=== PATIENT | female | born 1980 | race Caucasian/White ===

== ENCOUNTER 2016-10-12 20:27 | Emergency (ER) | payer OTHER ==
[~2016-10-12] VITALS: Ht 172.7 cm; Wt 74.6 kg
[~2016-10-12 20:27] MED LIST: METR-1 PO
[2016-10-12 20:31] VITALS: BP 135/56; PULSE 84; RESP 16; TEMP 98.6; O2SAT 97
--- NOTE | 2016-10-12 20:57 | PD ---
HPI Chief Complaint: Complaint Time Seen by Provider: 20:56 Travel History International Travel<30 days: No Contact w/Intl Traveler<30days: No History of Present Illness HPI 36-year-old female presents the emergency department with question of urinary tract infection. Patient states some dysuria for the past 2 days. Patient states history of bacterial vaginosis in the past, and she is concerned about possible GC chlamydia she had intercourse with a new partner 2 days ago and the condom broke. She currently has some itching and vaginal discharge, but no fever, flank pain, nausea, or vomiting. She has no known drug allergies. PFSH Past Medical History Anxiety: Yes Diminished Hearing: No Immunizations Current: No : 3 Para: 3 Miscarriage: 0 : 0 Tubal Ligation: Yes Past Surgical History Other Surgery: Yes (LEFT BREAT BIOPSY) Social History Alcohol Use: Yes (on occasion) Tobacco Use: No Substance Use: Yes (THC on occasion) Allergies-Medications (Allergen,Severity, Reaction): Coded Allergies: No Known Allergies (Unverified , 07/29/15) Reported Meds & Prescriptions Reported Meds & Active Scripts Active Diflucan (Fluconazole) 150 Mg Tab 150 Mg PO ONCE Metronidazole 500 Mg Tab 500 Mg PO TID 7 Days Flagyl (Metronidazole) 500 Mg Tab 500 Mg PO BID TAKE UNTIL GONE Review of Systems Except as stated in HPI: all other systems reviewed are Neg General / Constitutional: No: Fever Eyes: No: Visual changes HENT: No: Headaches Cardiovascular: No: Chest Pain or Discomfort Respiratory: No: Shortness of Breath Gastrointestinal: No: Abdominal Pain Genitourinary: Positive: Dysuria, Discharge, No: Pelvic Pain, Flank Pain Musculoskeletal: No: Pain Skin: No Rash Neurologic: No: Weakness Psychiatric: No: Depression Endocrine: No: Polydipsia Hematologic/Lymphatic: No: Easy Bruising Physical Exam Narrative GENERAL: Patient is in no acute distress. SKIN: Warm and dry. Normal color. Normal turgor. No rash. HEAD: Atraumatic. Normocephalic. EYES: Pupils equal and round. No scleral icterus. No injection or drainage. ENT: No nasal bleeding or discharge. Mucous membranes pink and moist. Pharynx is clear. Airway is patent. NECK: Trachea midline. Supple nontender. CARDIOVASCULAR: Regular rate and rhythm. RESPIRATORY: No accessory muscle use. Clear to auscultation. Breath sounds equal bilaterally. GASTROINTESTINAL: Abdomen soft, non-tender, nondistended. Hepatic and splenic margins not palpable. No CVA tenderness. MUSCULOSKELETAL: Extremities without clubbing, cyanosis, or edema. No obvious deformities. NEUROLOGICAL: Awake and alert. No obvious cranial nerve deficits. Motor grossly within normal limits. Five out of 5 muscle strength in the arms and legs. Normal speech. PSYCHIATRIC: Appropriate mood and affect; insight and judgment normal. Data Data Last Documented VS Vital Signs Date Time Temp Pulse Resp B/P Pulse Ox O2 Delivery O2 Flow Rate FiO2 10/12/16 20:31 98.6 84 16 135/56 97 Orders Urinalysis - C+S If Indicated (10/12/16 20:49) Gc And Chlamydia Pcr (10/12/16 21:03) Metronidazole (Flagyl) (10/12/16 21:15) Azithromycin Powd Pack (Zithromax Powd P (10/12/16 21:15) Lidocaine 1% Inj (50 Ml) (Xylocaine 1% I (10/12/16 21:15) Ceftriaxone Inj (Rocephin Inj) (10/12/16 21:15) Ed Urine Pregnancytest Poc (10/12/16 21:06) Labs Laboratory Tests Test 10/12/16 20:20 Urine pH 6.5 Urine Protein NEG mg/dL Urine Glucose (UA) NEG mg/dL Urine Ketones NEG mg/dL Urine Occult Blood NEG Urine Nitrite NEG Urine Bilirubin NEG Urine Leukocyte Esterase NEG MDM Medical Decision Making Medical Screen Exam Complete: Yes Emergency Medical Condition: Yes Differential Diagnosis Urinary tract infection. Bacterial vaginosis. Possible GC chlamydia. Possible yeast infection. Narrative Course Patient was discussed with Dr. Anaya, and she felt the patient should be checked for a UTI and treated empirically for STD/bacterial vaginosis/vaginal yeast infection. Urinalysis was obtained and urine was checked. Urinalysis showed no obvious signs of urinary tract infection. GC and chlamydia is ordered on the urine. Patient is treated empirically with 1 g Rocephin IM as well as 1000 mg of azithromycin by mouth 1. Patient is given a dose of metronidazole 500 mg by mouth 1. Patient will be continued on metronidazole 500 mg 3 times a day 7 days. She should not drink alcohol while taking this. Patient is also given Diflucan 150 mg 1 tab by mouth now and one in 1 week as needed. GC chlamydia is pending. Patient should follow-up with local primary care physician/BILLING REPRESENTATIVE/health department as discussed. Diagnosis Primary Impression: Possible exposure to STD Additional Impressions: Bacterial vaginosis Vaginal candidiasis Referrals: [facility]. Patient Instructions: General Instructions Additional Instructions: Urinalysis showed no obvious signs of urinary tract infection. GC and chlamydia is ordered on the urine. Patient is treated empirically with 1 g Rocephin IM as well as 1000 mg of azithromycin by mouth 1. Patient is given a dose of metronidazole 500 mg by mouth 1. Patient will be continued on metronidazole 500 mg 3 times a day 7 days. She should not drink alcohol while taking this. Patient is also given Diflucan 150 mg 1 tab by mouth now and one in 1 week as needed. GC chlamydia is pending. Patient should follow-up with local primary care physician/BILLING REPRESENTATIVE/health department as discussed. Med/Other Pt SpecificInfo: Prescription(s) given Scripts Fluconazole (Diflucan)150 Mg [id number] Mg PO ONCE #1 TAB Ref 1 Prov:Any Anaya MD 10/12/16 Metronidazole 500 Mg [id number] Mg PO TID 7 Days Ref 0 Prov:Any Anaya MD 10/12/16 Disposition: 01 DISCHARGE HOME Condition: Stable [place] Pinto Oct 12, 2016 20:57
[2016-10-12] MEDS ORDERED: AZITHROMYCIN PWD FOR SUSP 1 GM PACKET PO ONE (21:15)
[2016-10-12] MEDS ORDERED: LIDOCAINE HCL 1% 50 ML VIAL IM ONE (21:15)
[2016-10-12] MEDS ORDERED: metroNIDAZOLE 500 MG TAB PO ONE (21:15)
[2016-10-12 21:45] LABS: BLOOD, URINE NEG (NEG); GLUCOSE,URINE NEG (NEG); KETONE, URINE NEG (NEG); NITRITE,URINE NEG (NEG); PH, URINE 6.5 (5.0-8.5)
[2016-10-12 21:53] LABS: URINE COLOR YELLOW (YELLW/STRAW)
[2016-10-12 21:54] LABS: MUCUS URINE MOD /lpf (OCC)
[2016-10-12 21:59] LABS: BACTERIA, URINE FEW /hpf
[2016-10-12] MEDS ORDERED: METR500T10 PO (21:59)
[2016-10-12] MEDS ORDERED: DIFL150T PO (21:59)
[2016-10-12 22:00] LABS: WBC, URINE 0-2 /hpf (0-5)
[2016-10-12 22:01] LABS: COMMENT (UR) CULT NOT INDICATED; CULTURE IF INDICATED CULT NOT INDICATED
[2016-10-12 22:25] VITALS: BP 132/88
[2016-10-13 04:18] LABS: CHLAMYDIA PCR NOT DETECTED (NOT DETECT); NEISSERIA PCR NOT DETECTED (NOT DETECT)
== END 2016-10-12 22:27 | disposition home or self-care (01) ==
LOC: PHED 20:27 → PHEFT 22:27
DX: N76.0 Acute vaginitis (principal); B37.3 Candidiasis of vulva and vagina; R30.0 Dysuria; Z20.2 Contact with and (suspected) exposure to infections with a predominantly sexual mode of transmission; Z86.59 Personal history of other mental and behavioral disorders
CPT/HCPCS: 81001; 84703; 87491; 87591; 96372; 99284; J0696